=== PATIENT | female | born 1965 | race Caucasian/White ===

== ENCOUNTER → 2020-06-30 | Outpatient (CLI) | payer BC | LOC: LAB 10:19 | DX: U07.1 COVID-19 (principal) | CPT/HCPCS: U0002 ==

== ENCOUNTER 2021-04-19 19:21 | Emergency (ER) | payer BC ==
[2021-04-19 20:02] LABS: HEMOGLOBIN 13.7 gm/dl (12.3-15.3); RED BLOOD COUNT 4.42 M/UL (4.00-5.10); WHITE BLOOD COUNT 8.9 K/UL (4.5-11.0)
[2021-04-19 20:32] LABS: BUN/CREATININE RATIO 23 (0-10)
[2021-04-19] MEDS ORDERED: CARAFATE1 GM PO (23:25)
[2021-04-19] MEDS ORDERED: ZOFRAN ODT 4 MG4 MG PO (23:25)
[2021-04-19] MEDS ORDERED: PROTONIX20 MG PO (23:25)
== END 2021-04-19 23:50 | disposition home or self-care (01) ==
LOC: ER1 19:21
PROVIDERS: Physician Assistant
DX: K27.3 Acute peptic ulcer, site unspecified, without hemorrhage or perforation (principal); Z88.0 Allergy status to penicillin
CPT/HCPCS: 80053; 81001; 82150; 82550; 82553; 83605; 83690; 84484; 85025; 93005; 96374; 96375; 99284; C9113; J1885; Q9967

== ENCOUNTER → 2022-01-29 | Outpatient (CLI) | payer BC ==
[~2022-01-29] MED LIST: CARAFATE1 GM PO; PROTONIX20 MG PO; ZOFRAN ODT 4 MG4 MG PO
== END ==
LOC: LAB 15:27
DX: U07.1 COVID-19 (principal); Z23 Encounter for immunization
CPT/HCPCS: U0002